=== PATIENT | female | born 1950 | race Caucasian/White ===

== ENCOUNTER → 2018-01-14 | Outpatient (CLI) | payer MEDICARE | END | disposition home or self-care (01) | LOC: RAD 12:31 | DX: M17.11 Unilateral primary osteoarthritis, right knee (principal) ==

== ENCOUNTER → 2018-03-14 | Outpatient (CLI) | payer MEDICARE ==
[~2018-03-14] MED LIST: DIPH1TAB6 PO; EVOL140S INJ; HYDR-3240 PO; IBUP1TAB14 PO; LOSA50TA7 PO; SIMV20TA3 PO
[2018-03-14 16:00] LABS: ALBUMIN 3.7 g/dL (3.4-5.0); ANION GAP 8 mmol/L (5-15); CHLORIDE 108 mmol/L (98-107)
[2018-03-14 16:03] LABS: ALANINE AMINOTRANSFERASE 40 U/L (12-78); ALKALINE PHOSPHATASE 61 U/L (45-117); BILIRUBIN,TOTAL 0.5 mg/dL (0.2-1.0); CREATININE 0.79 mg/dL (0.55-1.02); TOTAL PROTEIN 7.1 g/dL (6.4-8.2)
== END | disposition home or self-care (01) ==
LOC: STAR 14:51
PROVIDERS: ATTEND Surgery
DX: Z01.818 Encounter for other preprocedural examination (principal); D49.89 Neoplasm of unspecified behavior of other specified sites; D17.23 Benign lipomatous neoplasm of skin and subcutaneous tissue of right leg
CPT/HCPCS: 36415; 80053; 93005

== ENCOUNTER 2018-03-21 08:38 | Day surgery (SDC) | payer MEDICARE ==
[~2018-03-21] VITALS: Ht 154.9 cm; Wt 62.4 kg
[2018-03-21] MEDS ORDERED: LACTATED RINGERS 1,000 ML IV SCH (09:02)
[2018-03-21] MEDS ORDERED: MIDAZOLAM 1 MG/ML, 2ML ONE (10:31)
[2018-03-21] MEDS ORDERED: BUPIVACAINE/PF-EPI 0.5% 1:200K ONE (10:31)
[2018-03-21] MEDS ORDERED: FENTANYL PF 250 MCG/5ML ONE (10:32)
[2018-03-21] MEDS ORDERED: PHENYLEPHRINE 10 MG/ML ONE ×2 (10:33→15:41)
[2018-03-21] MEDS ORDERED: CEFAZOLIN 1,000 MG ONE ×2 (10:34)
[2018-03-21] MEDS ORDERED: LIDOCAINE-MPF 2% ,5ML ONE (10:36)
[2018-03-21] MEDS ORDERED: DEXAMETHASONE 4 MG/ML, 1ML ONE ×4 (10:36→11:16)
[2018-03-21] MEDS ORDERED: PROPOFOL 10 MG/ML, 20ML ONE (10:36)
[2018-03-21] MEDS ORDERED: MEPERIDINE/PF 25MG/0.5ML IVPush PRN (11:00)
[2018-03-21] MEDS ORDERED: HYDROmorphone 1 MG/ML, 1ML IV PRN (11:00)
[2018-03-21] MEDS ORDERED: hydrALAzine 20 MG/ML, 1ML IV PRN (11:00)
[2018-03-21] MEDS ORDERED: PROMETHAZINE 25 MG/ML, 1ML IV PRN (11:00)
[2018-03-21] MEDS ORDERED: OXYcodone 5 MG/5 ML ORAL.SOL UDC PO PRN ×2 (11:00→12:00)
[2018-03-21] MEDS ORDERED: ACETAMINOPHEN 325 MG TABLET PO PRN (11:00)
[2018-03-21] MEDS ORDERED: LABETALOL 5MG/ML, 20ML IV PRN (11:00)
[2018-03-21] MEDS ORDERED: FENTANYL PF 100 MCG/2ML IV PRN (11:00)
[2018-03-21] MEDS ORDERED: HALOPERIDOL 5 MG/ML IV PRN (11:00)
[2018-03-21] MEDS ORDERED: ONDANSETRON 2MG/ML, 2ML ONE ×3 (11:16)
[2018-03-21] MEDS ORDERED: KETOROLAC 30 MG/1 ML ONE (11:16)
[2018-03-21] MEDS ORDERED: morphine SULFATE 10 MG/ML, 1ML IVPush PRN (12:00)
[2018-03-21] MEDS ORDERED: ONDANSETRON 2MG/ML, 2ML IVPush PRN (12:00)
== END 2018-03-21 13:30 | disposition home or self-care (01) ==
LOC: OUT 08:38
PROVIDERS: ATTEND Surgery
DX: D17.1 Benign lipomatous neoplasm of skin and subcutaneous tissue of trunk (principal); D17.23 Benign lipomatous neoplasm of skin and subcutaneous tissue of right leg; Z72.89 Other problems related to lifestyle
CPT/HCPCS: 21931; 27337; 88305; J0690; J1100; J1885; J2250; J2370; J2405; J2704; J3010; J3490; J7120

== ENCOUNTER → 2018-04-08 | Outpatient (CLI) | payer MEDICARE ==
[2018-04-11 10:45] LABS: CRYPTOSPORIDIUM ANTIGEN Negative (Negative)
== END | disposition home or self-care (01) ==
LOC: LAB 15:00
PROVIDERS: ATTEND Internal Medicine
DX: K52.9 Noninfective gastroenteritis and colitis, unspecified (principal); I10 Essential (primary) hypertension; Z79.899 Other long term (current) drug therapy; R19.7 Diarrhea, unspecified
CPT/HCPCS: 36415; 82784; 83516; 84443; 86255; 87328; 87329

== ENCOUNTER 2019-02-05 12:42 | Inpatient (IN) | payer MEDICARE ==
[~2019-02-05] VITALS: Ht 154.9 cm; Wt 61.7 kg
[2019-02-07 12:55] VITALS: BP 141/73
== END 2019-02-07 22:37 | disposition home or self-care (01) | DRG 641 ==
LOC: ED 15:10 → INTOOBSV 15:44 → EDIP 15:44 → OBSVTOIN 15:50 → 5SO 16:56
PROVIDERS: ADMIT Internal Medicine; ATTEND Internal Medicine
DX: E86.0 Dehydration (principal); F11.20 Opioid dependence, uncomplicated; F12.90 Cannabis use, unspecified, uncomplicated; E78.5 Hyperlipidemia, unspecified; I10 Essential (primary) hypertension; G89.29 Other chronic pain; M54.5 Low back pain; I44.7 Left bundle-branch block, unspecified; Z87.891 Personal history of nicotine dependence
CPT/HCPCS: 36415; 71045; 78452; 80048; 80053; 80061; 83880; 84484; 85025; 85379; 93005; 93017; 93306; 93880; 99285; G0378; J2785; A9502; C9898